=== PATIENT | female | born 1975 | race Caucasian/White ===

== ENCOUNTER 2019-07-19 16:57 | Observation (INO) | payer BC ==
[~2019-07-19] VITALS: Ht 167.6 cm; Wt 118.3 kg
[2019-07-19] MEDS ORDERED: NECON1 EAC1 PO (17:21)
--- NOTE | 2019-07-19 18:04 | EKG ---
[facility] [address] [facility] [place], [place] [address] Signed Normal sinus rhythm Normal ECG No previous ECGs available Confirmed by ERWIN BHATTI MD ([id number]) on 07/19/2019 6:04:33 PM Electronically Signed By: ERWIN BHATTI MD 07/19/19 1804 PATIENT NAME: HARIKA HENRY Electrocardiogram DATE OF : 71 PHYSICIAN: ERWIN BHATTI MD REPORT #: [id number] REPORT IS CONFIDENTIAL AND NOT TO BE RELEASED WITHOUT AUTHORIZATION
--- NOTE | 2019-07-19 21:10 | NUR ---
PT ARRIVED TO ROOM 113, FROM ED VIA STRETCHER. A/O, SELF TRANSFERED TO BED. REQUESTING TO SHOWER, HOWEVER SHE IS AWARE SHE IS ON BEDREST WITH [facility], ACCEPTED, SAID SHE COULD VISIT WITH DR BHATTI IN AM ABOUT SHOWER. HAS PCOS, STATES THAT DR'S THINK THE BIRTHCONTROL MAY HAVE BEEN THE "REASON" FOR THE CLOTS. STATED THAT HER CALF WAS PAINFUL THURSDAY, TOOK ALIEVE, AND RUBBED CALF FOR COMFORT. 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 EDUCATED TO CALL LIGHT.
--- NOTE | 2019-07-19 22:00 | NUR ---
ASSESSMENT COMPLETE. PT ALERT AND ORIENTED X 4. DENIES PAIN OR SOB AT THIS TIME. TELE #6, HR IN THE 90'S. [employer] ORDERED FOR DINNER. IVF INFUSING. PM MEDS GIVEN WITHOUT ISSUE. NO FURTHER QUESTIONS OR CONCERNS AT THIS TIME. CALL LIGHT IN REACH.
--- NOTE | 2019-07-19 23:45 | NUR ---
CALL LIGHT ANSWERED. PT UP TO BR WITH SBA. BACK TO BED, MANI WELL. NO C/O SOB OR PAIN. CALL LIGHT IN REACH.
--- NOTE | 2019-07-20 01:40 | NUR ---
VS DONE. PT UP TO BR WITH SBA. BACK TO BED, MANI WELL. DENIES PAIN OR SOB. STATES SHE "HAD A FEW HEART PALPITATIONS WHILE SLEEPING". TELE #6, NSR HR IN THE 80'S. OXYGEN SATURATIONS 90% AFTER AMBULATION. UP TO 94% AFTER REST.
--- NOTE | 2019-07-20 05:03 | NUR ---
PT IN BED RESTING WITH EYES CLOSED, NAD. RR EVEN AND UNLABORED. CALL LIGHT IN REACH.
--- NOTE | 2019-07-20 06:00 | NUR ---
PT SLEPT OK. ALERT AND ORIENTED, USES CALL LIGHT APPROPRIATELY. BED REST WITH [facility]. IVF. DENIES PAIN OR SOB. RA. TELE #6.
--- NOTE | 2019-07-20 06:46 | NUR ---
CALL LIGHT ANSWERED. PT UP TO BR. BACK TO BED, MANI WELL. NO C/O SOB OR PAIN. PT STATES SHE'S FEELING LESS PRESSURE IN HER CHEST. IVF INFUSING. CALL LIGHT IN REACH.
--- NOTE | 2019-07-20 07:34 | NUR ---
REPORT RECIEVED FROM DEFENSIVE LINE COACH NURSE KENIA
--- NOTE | 2019-07-20 07:53 | NUR ---
MORNING ASSESSMENT DONE, PATIENT DENIES PAIN OR SOB AT REST. MORNING XARELTO GIVEN. QUESTIONS ANSWERED.
--- NOTE | 2019-07-20 09:35 | NUR ---
PATIENT IS SALINE LOCKED FOR SHOWER.
--- NOTE | 2019-07-20 09:58 | NUR ---
In and spoke with Marychuy. Has had pain in back of her leg for a few days. States she had her boyfriend rubbing it to relieve the pain. States she will have help at home in [place]. Does not use any DME. Denies further needs.
--- NOTE | 2019-07-20 10:35 | NUR ---
TALKED WITH PT ABOUT PULMONARY EMBOLI, HANDOUT GIVEN, REVIEWED WITH PT, SHE STATES UNDERSTANDING. ALSO UNDERSTANDS NEW MEDS. DENIES FURTHER QUESTIONS OR ISSUES AT THIS TIME.
--- NOTE | 2019-07-20 10:36 | NUR ---
PATIENT UP TO TAKE A SHOWER. TELE WRAPPED AND ON PATIENT.
[2019-07-20] MEDS ORDERED: XARELTO10 MG PO (11:29)
[2019-07-20] MEDS ORDERED: XARELTO20 MG PO (11:30)
--- NOTE | 2019-07-20 12:46 | NUR ---
PATIENT GIVEN DISCHARGE INSTRUCTIONS, QUESTIONS ANSWERED. IV REMOVED. PATIENT GIVEN WHEELCHAIR RIDE TO FRONT DOOR AT 1300.
--- NOTE | 2019-07-20 13:09 | NUR ---
patient sitting on the side of bed. hands and face washed oral care done by patient. patient states that she might shower later today. fresh ice water given. call button in reach. no other needs at this time.
--- NOTE | 2019-07-22 09:57 | NUR ---
ATTEMPTED TO CALL PT AT [phone], NO ANSWER AND MAILBOX IS FULL, WILL TRY LATER.
--- NOTE | 2019-07-25 11:45 | NUR ---
CALLED IN AN ATTEMPT TO FOLLOW UP WITH PT. HER PHONE IS UNABLE TO TAKE CALLS OR SAVE VOICE MAILS AT THIS TIME. [phone]
== END 2019-07-20 13:00 | disposition home or self-care (01) ==
LOC: ED 16:57 → MS 16:59
PROVIDERS: ADMIT Internal Medicine
DX: I26.99 Other pulmonary embolism without acute cor pulmonale (principal); E28.2 Polycystic ovarian syndrome; Z79.3 Long term (current) use of hormonal contraceptives
CPT/HCPCS: 36415; 71260; 80048; 80053; 83880; 84484; 85025; 93005; 93010; 93970; 96360; 96361; 99285-25; G0378; J3480; J7121